=== PATIENT | female | born 1995 | race Two or more races ===

== ENCOUNTER 2017-08-25 22:07 | Observation (INO) | payer OTHER | END 2017-08-25 23:32 | disposition home or self-care (01) | DRG 781 | LOC: LDRP 22:07 | PROVIDERS: ADMIT Obstetrics & Gynecology; ATTEND Obstetrics & Gynecology | DX: O26.892 Other specified pregnancy related conditions, second trimester (principal); R51 Headache; Z3A.20 20 weeks gestation of pregnancy | CPT/HCPCS: 59025; 76805; 81002; G0378 ==